=== PATIENT | female | born 1955 | race Caucasian/White ===

== ENCOUNTER 2021-02-15 07:41 | Day surgery (SDC) | payer MEDICARE, BC ==
[~2021-02-15] VITALS: Ht 162.6 cm; Wt 65.8 kg
[~2021-02-15 07:41] MED LIST: CYCLOBENZAPRINE10 MG PO; DIAZEPAM5 MG PO; KETOROLAC TROME10 MG PO; LEVOTHYROXINE75 MCG PO
--- NOTE | 2021-02-15 09:07 | NUR ---
02/15/21 0907 Ximena Alston 0855 PT ARRIVED IN PACU SLEEPY. ABD SOFT. 0905 DR AT BEDSIDE.
--- NOTE | 2021-02-16 07:21 | OR ---
[facility] [address], [place] [address] Signed DATE OF OPERATION: 02/15/2021 SURGEON: Dominik Hull MD PREOPERATIVE DIAGNOSES: 1. Screening. 2. Constipation (senna). 3. Unremarkable colonoscopy in 2010. POSTOPERATIVE DIAGNOSES: 1. 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 PROCEDURE: Colonoscopy with random cold biopsies x2. ESTIMATED BLOOD LOSS: None. INDICATIONS: James Baker is a 65-year-old female, asked to see me for a followup screening colonoscopy. She had an unremarkable colonoscopy back in 2010. She has no lower GI complaints and no family history of colon cancer or polyps. She has a long history chronic constipation and she uses senna. On her medication review today, she does use Valium p.r.n. along with her Flexeril. In the office, I had given her a pamphlet on colonoscopy and she understands the nature of that test. There is risk including, but not limited to gas bloating, crampy abdominal pain, bleeding, perforation requiring surgery, and missed diagnosis. She also understands the need for IV conscious sedation. She had expressed understanding and wished to proceed. PROCEDURE NOTE: James Baker was taken into our endoscopy suite and placed in the left lateral decubitus position. She was given 7 mg of Versed and 175 mcg of fentanyl. Even then, she was awake enough and groaning in pain and she has a very long redundant colon. In the future, she clearly needs monitored anesthesia care with propofol. A digital rectal exam had been performed and this was unremarkable. The adult colonoscope had been introduced and advanced under direct visualization of the camera. It took extra sedation, abdominal compression, and rotating James Baker into the supine position in order to get the scope around the splenic flexure, then the hepatic flexure, and finally into the cecum itself. Her prep was good. She has moderate melanosis coli throughout the entire Electronically Signed By: DOMINIK HULL MD 02/16/21 0721 PATIENT NAME: James ASHER OPERATIVE REPORT DATE OF : 55 REPORT #: [id number] PHYSICIAN: DOMINIK HULL MD PCP: NO PRIMARY CARE PHYSICIAN REPORT IS CONFIDENTIAL AND NOT TO BE RELEASED WITHOUT AUTHORIZATION [facility] [address] [place] [id number] Signed colon and rectum. No polyps and no diverticulosis. The scope was then slowly withdrawn. We took pictures throughout for photodocumentation. We took 2 random biopsies to evaluate the melanosis coli. We tried several times to rotate the scope in her rectum, but it was too small and we simply did not have enough room on this occasion. After this, the gas was suctioned out and the colonoscope removed. Overall, James Baker tolerated the procedure well, but will need monitored anesthesia care in the future. RECOMMENDATIONS: James Baker will follow up my office in 7 to 14 days to review her biopsy results with respect to the melanosis coli. She will need monitored anesthesia care in the future. Dominik Hull MD ALB/MODL /[id number] cc: Chart Filed Incomplete TIM Dooley MD Copies: CHART FILED INCOMPLETE DOMINIK HULL MD ~ Electronically Signed By: DOMINIK HULL MD 02/16/21 0721 PATIENT NAME: James ASHER MERRICK DWAINE OPERATIVE REPORT DATE OF : 55 REPORT #: [id number] PHYSICIAN: DOMINIK HULL MD PCP: NO PRIMARY CARE PHYSICIAN REPORT IS CONFIDENTIAL AND NOT TO BE RELEASED WITHOUT AUTHORIZATION
--- NOTE | 2021-02-16 15:00 | PATH ---
[facility] [address], [place] [address] Signed SPECIMEN(S): A COLON BIOPSY SPECIMEN SOURCE: A. COLON BIOPSY CLINICAL HISTORY: Preop: Screening colonoscopy. Postop: Melanosis coli. MICROSCOPIC DESCRIPTION: Histologic sections of all submitted blocks are examined by light microscopy. These findings, together with the gross examination, support the pathologic diagnosis. FINAL PATHOLOGIC DIAGNOSIS: Colon, biopsy: - Colonic mucosa with melanosis coli. - Negative for active, chronic, or microscopic colitis. - Negative for dysplasia or malignancy. NAL:cml:C2NR GROSS DESCRIPTION: The specimen, labeled "DP, #1," and designated on the requisition "colon," is received in formalin and consists of two ayala soft tissue fragments that measure 0.3 cm in greatest dimension. The specimen is entirely submitted in cassette (A1). AT (under the direct supervision of a pathologist) The Gross Description was prepared using a voice recognition system. The report was reviewed for accuracy; however, sound-alike word errors, addition and/or deletions may occur. If there is any question about this report, please contact Client Services. PERFORMING LABORATORY: The technical component was performed by [facility], [address] [place] [id number] (Pan Puller: Carol Boland MD; CLIA# [id number]). [facility] [address] [address] (CLIA# [id number]). Diagnostician: Chanelle Huddleston MD Pathologist Electronically Signed 02/16/2021 PATIENT NAME: James ASHER PATHOLOGY DATE OF : 55 REPORT #: [id number] PHYSICIAN: [facility] PCP: NO PRIMARY CARE PHYSICIAN REPORT IS CONFIDENTIAL AND NOT TO BE RELEASED WITHOUT AUTHORIZATION [address] [address] Signed Copies: ~ PATIENT NAME: James ASHER PATHOLOGY DATE OF : 55 REPORT #: [id number] PHYSICIAN: [facility] PCP: NO PRIMARY CARE PHYSICIAN REPORT IS CONFIDENTIAL AND NOT TO BE RELEASED WITHOUT AUTHORIZATION
== END 2021-02-15 09:55 | disposition home or self-care (01) ==
LOC: DS 07:41 → OPS 07:41 → DS 09:00 → OPS 09:00 → DS 03-03 09:00
PROVIDERS: ATTEND Colon & Rectal Surgery
PROC: 0DBE8ZX Excision of Large Intestine, Via Natural or Artificial Opening Endoscopic, Diagnostic (ICD-10-PCS; principal; 2021-02-15 09:00)
DX: Z12.11 Encounter for screening for malignant neoplasm of colon (principal); Q43.8 Other specified congenital malformations of intestine; K63.89 Other specified diseases of intestine; E03.9 Hypothyroidism, unspecified; Z88.1 Allergy status to other antibiotic agents
CPT/HCPCS: 88305; 99153; G0500; J2250; J3010; J7121